=== PATIENT | female | born 1990 | race Caucasian/White ===

== ENCOUNTER → 2016-11-16 22:55 | Emergency (ER) | payer OTHER ==
[~2016-11-16 22:55] MED LIST: ALPRAZOLAM PO; BACTRIM DS TABL1 TA1 PO; BACTROBAN15 GM TOP; DEPO-PROVER150 MG/ML INJ; DESYREL100 MG PO; E-MYCIN250 MG PO; IBUPROFEN800 MG PO; KLONOPIN; KLONOPIN PO; NAPROSYN500 MG PO; PROZAC PO; TRAZODONE; WELLBUTRIN PO; WELLBUTRIN100 MG PO
== END | disposition left against medical advice (07) ==
LOC: CED 22:55
DX: Z53.21 Procedure and treatment not carried out due to patient leaving prior to being seen by health care provider (principal)

== ENCOUNTER 2016-12-10 01:01 | Emergency (ER) | payer OTHER ==
--- NOTE | ~2016-12-10 | CR127 ---
[facility]. [facility] A Service of [facility] & [facility] RADIOLOGY TEXT RESULTS PATIENT: SADIE BUTT LOCATION: SED : [birth year] UNIT #: [id number] AGE: [address]: Sherita Ramirez SEX: F ORDER DR: [id number] [address] [id number] MR#: [id number] Acc #: [id number] NAME: SADIE BUTT : 1990 SEX: F STUDY DATE/TIME: 12/10/2016 1:51 UNIT: SED ROOM: STUDY DESCRIPTION: CR Foot Complete Min 3 View Rt Attending Physician: Sherita Ramirez Pa-C Primary Care Physician: Primary Care Physician No MEDICAL IMAGING REPORT This report is preliminary unless electronic signature is present. EXAM Right foot. INDICATION Pain and swelling for 3-4 days after boyfriend stepped on foot. FINDINGS The tarsal, metatarsal, and phalangeal elements are all anatomically normal in position and alignment. There are no articular defects. No fractures or radiopaque foreign bodies in the soft tissues are apparent. IMPRESSION Normal foot. Dictated by... Gee Morrell M.D. THIS IS AN ELECTRONICALLY VERIFIED REPORT Gee Morrell M.D. at 12/10/2016 5:30 AM Gertrude TD: 12/10/2016 05:08 JOB #: [id number] MEDICAL IMAGING REPORT Page 1 of 1
== END 2016-12-10 02:33 | disposition home or self-care (01) ==
LOC: SED 01:01
DX: S92.351A Displaced fracture of fifth metatarsal bone, right foot, initial encounter for closed fracture (principal); F31.9 Bipolar disorder, unspecified; F17.210 Nicotine dependence, cigarettes, uncomplicated; F41.0 Panic disorder [episodic paroxysmal anxiety]; Z90.49 Acquired absence of other specified parts of digestive tract; Z90.89 Acquired absence of other organs; Z88.0 Allergy status to penicillin; Z88.1 Allergy status to other antibiotic agents; Z88.6 Allergy status to analgesic agent; W50.0XXA Accidental hit or strike by another person, initial encounter; Y92.009 Unspecified place in unspecified non-institutional (private) residence as the place of occurrence of the external cause
CPT/HCPCS: 29540; 73630; 99283